=== PATIENT | female | born 1980 | race African-American/Black ===

== ENCOUNTER 2023-03-03 18:31 | Inpatient (IN) | payer OTHER ==
[~2023-03-03] VITALS: Ht 160 cm; Wt 71.2 kg
--- NOTE | 2023-03-03 19:32 | NUR ---
SE RECIBE PTE ALERTA Y ORIENTADA X3 LA MISMA REFIERE QUE A PRESENTADO EPISODIOS DE ATAQUES DE PANICO EN EL GREGORIO DE HOY Y COMENZO A SER LA PRESION CARL. SE REALIZAN VITALES EKG Y SE PRESENTA A DOCTOR EL CUAL ORDENA ACOMODARLA.
--- NOTE | 2023-03-03 20:24 | NUR ---
SE ORIENTA PTE SOBRE TX MEDICO EL CUAL REFIERE ENTENDER.SE LE EXTRAEN MUESTRAS BAJO MEDIDAS ASEPTICAS,SE ADMINISTRA MEDICAMENTO JOCE ORDEN MEDICA.
[2023-03-05] MEDS ORDERED: TOPROL XL100 M1 PO (14:06)
[2023-03-05] MEDS ORDERED: LOSARTAN POTASS25 MG PO (14:06)
[2023-03-05] MEDS ORDERED: CLONAZEPAM1 MG PO (14:06)
== END 2023-03-05 14:55 | disposition home or self-care (01) | DRG 281 ==
LOC: ER 18:31 → MEDI 21:48
PROVIDERS: ADMIT Internal Medicine; ATTEND Internal Medicine
PROC: B246ZZZ Ultrasonography of Right and Left Heart (ICD-10-PCS; 2023-03-03)
PROC: BB24Y0Z Computerized Tomography (CT Scan) of Bilateral Lungs using Other Contrast, Unenhanced and Enhanced (ICD-10-PCS; principal; 2023-03-04)
PROC: 4A12X4Z Monitoring of Cardiac Electrical Activity, External Approach (ICD-10-PCS; 2023-03-04)
DX: I21.4 Non-ST elevation (NSTEMI) myocardial infarction (principal); I16.9 Hypertensive crisis, unspecified; I10 Essential (primary) hypertension; R00.2 Palpitations